=== PATIENT | male | born 1995 | race Caucasian/White ===

== ENCOUNTER 2024-10-18 12:49 | Emergency (ER) | payer MEDICAID ==
[~2024-10-18] VITALS: Ht 170.2 cm; Wt 65.8 kg
[2024-10-18 12:54] VITALS: O2SAT 99
[2024-10-18] MEDS ORDERED: HYDR-3980 PO (14:47)
[2024-10-18] MEDS ORDERED: LIDO30AD10 TP (14:47)
== END 2024-10-18 14:53 | disposition home or self-care (01) ==
LOC: ER 12:49
DX: S20.212A Contusion of left front wall of thorax, initial encounter (principal); Z79.899 Other long term (current) drug therapy; W18.39XA Other fall on same level, initial encounter; Y93.89 Activity, other specified; Y92.89 Other specified places as the place of occurrence of the external cause; Y99.8 Other external cause status
CPT/HCPCS: 71101; A4606; A4663

== ENCOUNTER 2025-09-07 13:18 | Emergency (ER) | payer MEDICAID ==
[~2025-09-07] VITALS: Ht 167.6 cm; Wt 70.3 kg
[~2025-09-07 13:18] MED LIST: HYDR-3980 PO; LIDO30AD10 TP
[2025-09-07 13:21] VITALS: BP 140/64
[2025-09-07 15:11] VITALS: BP 140/64; TEMP 98; O2SAT 99
== END 2025-09-07 15:02 | disposition home or self-care (01) ==
LOC: ER 13:18
DX: S62.001A Unspecified fracture of navicular [scaphoid] bone of right wrist, initial encounter for closed fracture (principal); S93.401A Sprain of unspecified ligament of right ankle, initial encounter; M25.371 Other instability, right ankle; M25.331 Other instability, right wrist; W10.9XXA Fall (on) (from) unspecified stairs and steps, initial encounter; Y93.89 Activity, other specified; Y92.89 Other specified places as the place of occurrence of the external cause; Y99.9 Unspecified external cause status
CPT/HCPCS: 73110; 73610; A4606; A4663